=== PATIENT | male | born 1970 | race African-American/Black ===

== ENCOUNTER 2019-09-23 14:12 | Observation (INO) | payer OTHER ==
[~2019-09-23] VITALS: Ht 180.3 cm; Wt 86.4 kg
[2019-09-23 14:21] VITALS: TEMP 97.1
[2019-09-23 14:45] LABS: BASO # 0.1 (0.0-0.2); BASO % 1.1 % (0.0-2.0); EOS # 0.2 (0.0-0.7); EOS % 3.4 % (0-4.0); GRAN # 2.6 (1.4-6.5); GRAN % 56.3 % (42.2-75.2); HEMATOCRIT 44.1 % (42.0-52.0); HEMOGLOBIN 14.6 g/dl (13.5-18.0); LYMPH # 1.5 (1.2-3.4); LYMPH % 32.6 % (20.0-51.0); MEAN CELL VOLUME 91 fl (80.0-100.0); MEAN CORPUSCULAR HEMOGLOBIN 30 pg (27.0-31.0); MEAN CORPUSCULAR HGB CONC 33 g/dl (33.0-37.0); MEAN PLATELET VOLUME 9.6 fl (7.4-10.4); MONO # 0.3 (0.1-0.6); MONO % 6.4 % (1.7-9.3); PLATELET COUNT 283 K/mm3 (130-400); RED BLOOD COUNT 4.83 M/mm3 (4.20-5.60); REDCELL DISTRIBUTION WIDTH-CV 12.9 % (11.5-14.5)
[2019-09-23 14:54] LABS: ALANINE AMINOTRANSFERASE 22 U/L (21-72); ALBUMIN 4.2 gm/dL (3.5-5.0); ALKALINE PHOSPHATASE 63 U/L (50-136); ANION GAP 8 mmol/L (7-16); AST,SGOT 30 U/L (15-37); BILIRUBIN,TOTAL 0.7 mg/dL (0.0-1.0); BLOOD UREA NITROGEN 11 mg/dL (9-20); CALCIUM 9.2 mg/dL (8.4-10.2); CARBON DIOXIDE 29 mmol/L (22-30); CHLORIDE 101 mmol/L (98-107); CREATININE, serum 1.19 (0.66-1.25); GLUCOSE 91 mg/dL (74-106); MAGNESIUM 1.9 mg/dL (1.6-2.3); SODIUM 138 mmol/L (137-145); TOTAL PROTEIN 7.5 gm/dL (6.4-8.2)
[2019-09-23 15:06] LABS: TROPONIN-I < 0.012 ng/mL (0.000-0.035)
[2019-09-23 17:45] LABS: CREATININE, serum 1.17 (0.66-1.25); POTASSIUM 4.2 mmol/L (3.4-5.0)
[2019-09-23 18:45] VITALS: BP 127/79; PULSE 62
--- NOTE | 2019-09-23 18:45 | NUR ---
PT PLACED ON TELEMETRY, OXYGEN REMAINS ABOVE 90%. PT DID NOT HAVE SORENESS OR REDNESS ON HIS CHEST OR BACK. FLUIDS WERE CONTINUED UNTIL PT WAS UP AND AMBULATING IN AND AROUND THE UNIT WITH NO COMPLICATIONS. GAG REFLEX INTACT AND ENCOURAGED TO USE LOSENGES OR ICE FOR SORE THROAT WHEN HE GETS HOME. EKG COMPLETED AND IN COMPUTER. PT WAS INSTRUCTED NOT TO OPERATE MOTORIZED VEHICLE FOR 24 HOURS AFTER THE PROCEDURE. PT AWARE. ENCOURAGED PT TO FOLLOW UP WITH DR. BROWN IN ONE TO TWO WEEKS BY CALLING HIS OFFICE TO MAKE APPT. PT AWARE.
[2019-09-23 19:00] VITALS: BP 129/80; PULSE 61
[2019-09-23 19:15] VITALS: BP 122/79; PULSE 66
--- NOTE | 2019-09-23 19:17 | NUR ---
CALLED LAB TO VERIFY THAT ANGIOTENSIN CONV ENZYME, LYME DISEASE ANTIBODIES AND LYME WESTERN BLOT SERUM LABS HAVE BEEN DRAWN. RONEY WITH LAB VERIFIED THAT THEY HAVE BEEN DRAWN.
[2019-09-23 19:30] VITALS: BP 125/82; PULSE 53
[2019-09-23 20:00] VITALS: BP 128/87; PULSE 60
[2019-09-26 09:51] LABS: LYME DISEASE ANTIBODIES Negative (Negative)
== END 2019-09-23 20:44 | disposition home or self-care (01) ==
LOC: COL.ER 14:12 → EU 17:50 → COL.ER 17:50 → EU 20:44
PROVIDERS: Emergency Medicine; ADMIT Internal Medicine Interventional Cardiology
DX: I48.92 Unspecified atrial flutter (principal); I50.20 Unspecified systolic (congestive) heart failure; Z79.82 Long term (current) use of aspirin; F17.210 Nicotine dependence, cigarettes, uncomplicated; K21.9 Gastro-esophageal reflux disease without esophagitis; I07.1 Rheumatic tricuspid insufficiency
CPT/HCPCS: J2704

== ENCOUNTER → 2019-10-07 | Outpatient (CLI) | payer OTHER | LOC: COL.VAS 09:41 | DX: I42.8 Other cardiomyopathies (principal) | CPT/HCPCS: C8924; Q9957 ==

== ENCOUNTER 2020-03-15 08:59 | Day surgery (SDC) | payer SELFPAY ==
[~2020-03-15] VITALS: Ht 180.3 cm; Wt 89.1 kg
[2020-03-15 09:42] VITALS: BP 116/79; PULSE 52; TEMP 97.6
[2020-03-15 09:52] LABS: PROTHROMBIN TIME 10.9 SECONDS (9.7-12.8)
[2020-03-15] MEDS ORDERED: FLEXERIL 1010 MG/TAB PO (09:54)
[2020-03-15] MEDS ORDERED: ELIQUIS 5MG PO (09:54)
[2020-03-15] MEDS ORDERED: K-TAB10 PO (09:55)
[2020-03-15 10:44] LABS: POTASSIUM 4.7 mmol/L (3.4-5.0)
[2020-03-15 11:14] LABS: THYROID STIMULATING HORMONE 0.415 uIU/mL (0.465-4.680)
[2020-03-15 11:55] VITALS: BP 107/74; PULSE 56; TEMP 97.6
[2020-03-15 12:10] VITALS: BP 124/90; PULSE 61; TEMP 97.6
[2020-03-15 12:25] VITALS: BP 119/83; PULSE 61; TEMP 97.6
[2020-03-15 12:55] VITALS: BP 119/87; PULSE 62; TEMP 97.6
[2020-03-15 13:25] VITALS: BP 113/81; PULSE 58; TEMP 97.6
--- NOTE | 2020-03-15 13:25 | NUR ---
INT discontinued. Discharge instructions given.
--- NOTE | 2020-03-15 13:35 | NUR ---
Ambulated with pt to private car driven by girlfriend
== END 2020-03-15 13:35 | disposition home or self-care (01) ==
LOC: COL.CAR 08:59
PROVIDERS: Internal Medicine Cardiovascular Disease
DX: I48.19 Other persistent atrial fibrillation (principal); I42.8 Other cardiomyopathies; I49.8 Other specified cardiac arrhythmias; Z20.828 Contact with and (suspected) exposure to other viral communicable diseases; Z79.82 Long term (current) use of aspirin; K21.9 Gastro-esophageal reflux disease without esophagitis; F17.210 Nicotine dependence, cigarettes, uncomplicated; Z79.02 Long term (current) use of antithrombotics/antiplatelets; Z90.49 Acquired absence of other specified parts of digestive tract; Z82.49 Family history of ischemic heart disease and other diseases of the circulatory system; Z83.3 Family history of diabetes mellitus
CPT/HCPCS: J2704; J7030